=== PATIENT | female | born 1960 ===

== ENCOUNTER → 2024-01-20 06:28 | Day surgery (SDC) | payer BC, SELFPAY | LOC: GI 06:28 | PROVIDERS: ATTENDING PHYSICIAN Internal Medicine | DX: R13.10 Dysphagia, unspecified (principal); Q39.8 Other congenital malformations of esophagus; K22.89 Other specified disease of esophagus | CPT/HCPCS: 43235 ==

== ENCOUNTER → 2024-01-22 06:36 | Day surgery (SDC) | payer BC, SELFPAY | LOC: GI 06:36 | PROVIDERS: ATTENDING PHYSICIAN Internal Medicine | DX: R13.10 Dysphagia, unspecified (principal); Q39.8 Other congenital malformations of esophagus | CPT/HCPCS: 43235 ==

== ENCOUNTER 2025-08-08 06:23 | Day surgery (SDC) | payer BC, SELFPAY | END 2025-08-08 11:36 | disposition home or self-care (01) | LOC: GI 06:23 | PROVIDERS: ATTENDING PHYSICIAN Internal Medicine | DX: R12 Heartburn (principal); Q39.9 Congenital malformation of esophagus, unspecified; K29.70 Gastritis, unspecified, without bleeding | CPT/HCPCS: 43239; 88305; 88342 ==